=== PATIENT | female | born 1975 | race Two or more races ===

== ENCOUNTER 2020-09-08 | Outpatient (CLI) | payer OTHER | END 2020-09-08 08:51 | disposition home or self-care (01) | LOC: PPH VACUNA | DX: Z23 Encounter for immunization (principal) ==

== ENCOUNTER 2020-09-29 14:05 | Outpatient (CLI) | payer OTHER | END 2020-09-29 14:10 | disposition home or self-care (01) | LOC: PPH VACUNA 14:05 | DX: Z23 Encounter for immunization (principal) ==